=== PATIENT | female | born 1990 | race Caucasian/White ===

== ENCOUNTER → 2016-08-29 | Outpatient (CLI) | payer OTHER | LOC: BHSO 08:33 | DX: F31.81 Bipolar II disorder (principal) ==

== ENCOUNTER → 2016-10-09 | Outpatient (CLI) | payer OTHER | LOC: BHSO 08:24 | DX: F31.81 Bipolar II disorder (principal) ==

== ENCOUNTER → 2017-01-08 | Outpatient (CLI) | payer OTHER | LOC: BHSO 08:30 | DX: F31.81 Bipolar II disorder (principal) ==

== ENCOUNTER → 2017-04-09 | Outpatient (CLI) | payer OTHER | LOC: BHSO 08:30 | DX: F31.81 Bipolar II disorder (principal) ==

== ENCOUNTER → 2017-11-29 | Outpatient (CLI) | payer OTHER | LOC: BHSO 09:30 | DX: F31.81 Bipolar II disorder (principal) | CPT/HCPCS: G0463 ==

== ENCOUNTER → 2019-03-03 | Outpatient (CLI) | payer BC | LOC: BHSO 15:04 | DX: F31.81 Bipolar II disorder (principal) | CPT/HCPCS: G0463 ==

== ENCOUNTER → 2019-04-01 | Outpatient (CLI) | payer BC | LOC: BHSO 09:03 | DX: F31.81 Bipolar II disorder (principal) | CPT/HCPCS: G0463 ==

== ENCOUNTER → 2019-08-12 | Outpatient (CLI) | payer BC ==
[~2019-08-12] MED LIST: FOLIC ACID 11 MG/TA1 PO; IBU600 MG PO; LAMICTAL 100MG100 MG PO; OMEGA-3 1000 MG1 CAP PO; PERCOCET 325 MG1 TA2 PO; PRENATAL TABLET PO; PRIL40 PO; PROZAC40 MG PO
== END ==
LOC: BHSO 09:00
DX: F31.81 Bipolar II disorder (principal)
CPT/HCPCS: G0463

== ENCOUNTER 2019-08-26 12:18 | Inpatient (IN) | payer BC ==
[2019-08-26] VITALS (35 sets, daily range): BP systolic 106–142; BP diastolic 56–93; PULSE 64–117; TEMP 98.1–99.3
[~2019-08-26] VITALS: Ht 157.6 cm; Wt 89.5 kg
--- NOTE | 2019-08-26 12:30 | NUR ---
Pt here with c/o questionable SROM. Pt had felt some leaking of fluid yesterday and continued to watch. States waking up around 0800 this AM and had to change clothes and has had 2 more "gushes" since. Pt to [facility], explained. SVE: first amniotrace negative, cervix checked, /-2, bulgy bag of willis palpated. During exam fluid noted, amniotrace done again and slightly green tinge noted to swab. Assessment complete. VSS. Peripad placed and will notify Dr Sherwood and continue to monitor with pad on. Pt denies any regular contractions.
[2019-08-26] MEDS ORDERED: OMEGA-3 1000 MG1 CAP PO (12:32)
[2019-08-26] MEDS ORDERED: PROZAC40 MG PO (12:33)
[2019-08-26] MEDS ORDERED: FOLIC ACID 11 MG/TA1 PO (12:34)
[2019-08-26] MEDS ORDERED: LAMICTAL 100MG100 MG PO (12:34)
[2019-08-26] MEDS ORDERED: PRIL40 PO (12:35)
[2019-08-26] MEDS ORDERED: PRENATAL TABLET PO (12:35)
--- NOTE | 2019-08-26 14:00 | NUR ---
Amnisure done and sent to lab. Will notify physician of results.
--- NOTE | 2019-08-26 14:50 | NUR ---
IV started to left hand. Consents signed. LR infusing without difficulty. Pen G 5mu started IVPB for + GBS. 1510:FHR reactive, pitocin started at 2mu per order.
[2019-08-26 15:33] LABS: BASO % 0.3 % (0.0-2.0); EOS # 0.1 (0.0-0.7); EOS % 1.1 % (0-4.0); GRAN # 9.4 (1.4-6.5); GRAN % 71.4 % (42.2-75.2); HEMATOCRIT 39.8 % (37.0-47.0); HEMOGLOBIN 13.3 g/dl (12.5-16.0); LYMPH % 15.4 % (20.0-51.0); MEAN CELL VOLUME 84 fl (80.0-100.0); MEAN CORPUSCULAR HEMOGLOBIN 28 pg (27.0-31.0); MEAN CORPUSCULAR HGB CONC 33 g/dl (33.0-37.0); MEAN PLATELET VOLUME 10.5 fl (7.4-10.4); MONO # 1.4 (0.1-0.6); MONO % 10.8 % (1.7-9.3); PLATELET COUNT 258 K/mm3 (130-400); RED BLOOD COUNT 4.73 M/mm3 (4.10-5.30); REDCELL DISTRIBUTION WIDTH-CV 13.3 % (11.5-14.5)
--- NOTE | 2019-08-26 17:35 | NUR ---
Dr. Sherwood at bedside. SVE per provider 2. AROM of forebag. Pericare provided. Pt updated on POC. No questions or concerns at this time.
--- NOTE | 2019-08-26 17:45 | NUR ---
Dr. Sherwood on unit. Reviews FHR strip. Orders to decrease pitocin to 4mU.
--- NOTE | 2019-08-26 18:30 | NUR ---
Report received from Gerardo TSE. Pt resting in bed and states she thinks she will be ready for her epidural soon. Plan of care explained to pt and questions answered. Call light within reach. 1919: Pt requesting epidural at this time. Svetlana EVERETT notified. Pt off monitor to use restroom. 1926: Pt assisted to EOB for epidural. Svetlana EVERETT at bedside and explains procedure. Pulse ox applied and tracing. 1935: Test dose administered by Svetlana EVERETT. See anesthesia records 1941: Pt repositioned to wedge left position. Plan of care and safety precautions explained to pt and . Call light within reach. 1999: Recurrent late decels noted. BP 106/56. Pt repositioned to wedge right position. Will continue to monitor closely. Plan of care explained to pt and and questions answered.
--- NOTE | 2019-08-26 20:48 | NUR ---
Gaspar catheter inserted without difficulites. SVE /-1. Pericare provided and pt repositioned to wedge right with peanut ball. Plan of care explained. 2058: call unit for update. See physican notification. 2129: Pt repostioned to wedge left position with peanut ball. 2137: FHR decel noted down to 70bpm at lowest point, lasting 430 seconds. Pt repositioned right lateral to left lateral, O2 applied via oxymask at 10L, LR bolus infusing without difficulties and pitocin stopped. 2142: Pt repositioned to hands and knees position and scalp stimulation started. 2144: on unit and requested in room. 2145: FHR returns to baseline of 145bpm with moderate varibality. Pt remains in hands and knees position with O2. in room reviewing FHR strip. 2148: Pt repositioned to wedge right position with O2. Pitocin remains off. to remain on unit reviewing FHR strip. 2211: SVE per 7. Orders to recheck cervix in one hour received, continue with pitocin off at this time. 2216: Temp noted of 99.3 axillary, Pulse 126 to 110. 2219: remains on unit and updated. Orders received to give tylenol and continue to monitor. reviewing FHR strip.
[2019-08-27] VITALS (45 sets, daily range): BP systolic 99–144; BP diastolic 54–83; PULSE 85–139; TEMP 97.8–98.8
--- NOTE | 2019-08-27 03:00 | NUR ---
SVE C/0. Pericare provided. Plan of care explained to pt and family who verblailze understanding. 0304: called and updated on pts status. See physican notification. 0311: Education on pushing with contractions explained to pt who verbalizes understanding. Pt starts pushing with this RN. 0315: FHR deceleration noted after second push. FHR down to 80bpm at lowest point lasting 360 seconds. Pt repositioned to right lateral and back to left lateral. O2 applied via oxymask at 10L. LR bolus infusing and pitocin stopped. Scalp stimulation completed. 0317: Pt repositioned to hands and knees position. Scalp stimulation attempted with no return to baseline. called and requested at hospital. 0318: Pt repositioned to right lateral position with spontaneous return to basline of 135bpms.
--- NOTE | 2019-08-27 03:29 | NUR ---
Svetlana [employer] requested on floor. Pt remains RL with O2. 0339: at bedside for evaluation. Orders to labor down at this time. reviews FHR strip and remains at nurses station. 0402: at bedside. Education on pushing with contractions. Pt starts pushing with provider. 0408: Pitocin restarted at 2mus/hr per 's orders. Provider reviews FHR strip at bedside. 0440: Pt starts pushing with this RN. to remain at nurses station and reviews FHR strip. 0541: Pitocin increased to 4mus/hr per s orders. 0553: FHR decel noted down to 100bpms, scalp stimulation completed with return to baseline. 0600: Gaspar removed without difficulties.
--- NOTE | 2019-08-27 06:45 | NUR ---
0645-Dr. Sherwood at bedside. Reviews FHR strip and assesses maternal effort. Orders to continue pushing with re-evaluate at 0730 for progress. 0735-Dr. Sherwood at bedside. Re-evaluates FHR strip and maternal effort. Decision for section. Pt agrees to POC. Pt prepped for delivery.
[2019-08-28 01:45] VITALS: BP 100/63; PULSE 85; TEMP 97.9
[2019-08-28 07:57] LABS: HEMATOCRIT 33.1 % (37.0-47.0); HEMOGLOBIN 11.1 g/dl (12.5-16.0)
[2019-08-28 08:50] VITALS: BP 103/59; PULSE 85; TEMP 97.8
--- NOTE | 2019-08-28 10:08 | NUR ---
Initial visit attempt; Physician present, Heart Coordinator left card of congratulations for the of their daughter and information regarding the availability of spiritual care at [facility].
[2019-08-28] MEDS ORDERED: IBU600 MG PO (10:40)
[2019-08-28] MEDS ORDERED: PERCOCET 325 MG1 TA2 PO (10:40)
[2019-08-28 16:45] VITALS: BP 134/75; PULSE 88; TEMP 98.3
[2019-08-28 21:10] VITALS: BP 128/72; PULSE 99; TEMP 98.7
[2019-08-29 09:55] VITALS: BP 134/81; PULSE 97; TEMP 97.7
[2019-08-29 17:00] VITALS: BP 134/81; PULSE 87; TEMP 98
[2019-08-29 21:05] VITALS: BP 140/81; PULSE 87; TEMP 98
[2019-08-30 08:00] VITALS: BP 147/81; PULSE 84; TEMP 97.7
--- NOTE | 2019-08-30 10:00 | NUR ---
THIS NURSE RECEIVES REPORT FROM GREGOR Liriano RN AND ASSUMES PATIENT CARE.
== END 2019-08-30 16:00 | disposition home or self-care (01) | DRG 788 ==
LOC: LDRO 12:18 → LDR 12:30 → LDRO 14:40 → LDR 14:40 → OB 08-27 08:24 → LDRO 09-07 07:27
PROVIDERS: ADMIT Obstetrics & Gynecology
PROC: 10D00Z1 Extraction of Products of Conception, Low, Open Approach (ICD-10-PCS; principal; 2019-08-27)
DX: O32.4XX0 Maternal care for high head at term, not applicable or unspecified (principal); O99.824 Streptococcus B carrier state complicating childbirth; O99.344 Other mental disorders complicating childbirth; F41.8 Other specified anxiety disorders; Z3A.38 38 weeks gestation of pregnancy; Z37.0 Single live birth
CPT/HCPCS: J0171; J0690; J1885; J2175; J2370; J2400; J2405; J2540; J2590; J3010; J7120